=== PATIENT | male | born 1950 | race Caucasian/White ===

== ENCOUNTER 2018-06-08 11:47 | Inpatient (IN) | payer MEDICARE, OTHER | END 2018-06-09 12:15 | disposition home or self-care (01) | LOC: ER 11:47 → ED HOLD 13:32 → ORTHO 4S 15:36 | DX: I63.9 Cerebral infarction, unspecified (principal); R47.01 Aphasia ==

== ENCOUNTER 2019-12-24 04:16 | Outpatient (CLI) | payer SELFPAY ==
[~2019-12-24 04:16] MED LIST: ASPI-41 PO; ATOR20TA66 PO; METO25TA6 PO
[2019-12-24 08:22] LABS: HEMOGLOBIN A1C 5.6 % (4.5-6.2)
[2019-12-24 08:35] LABS: CHOL/HDL RATIO 4.18 (0.00-4.99)
== END 2019-12-24 23:59 | disposition home or self-care (01) ==
LOC: HW HEART 04:16
DX: Z13.6 Encounter for screening for cardiovascular disorders (principal)
CPT/HCPCS: 36415; G0463

== ENCOUNTER 2020-10-29 16:59 | Emergency (ER) | payer MEDICARE, SELFPAY ==
[~2020-10-29] VITALS: Ht 180.3 cm; Wt 97.2 kg
[~2020-10-29 16:59] MED LIST changes: +DOBUTamine/D5W 500mg/250ml premix IV ONE; +DOPamine/D5W 400mg/250ml bag IV ONE; +LOP25T PO; -METO25TA6 PO; +NORepinephrine 1 mg/ml inj IV ONE; +etomidate 2mg/ml inj. ONE; +heparin, porcine-25,000 units/D5-250ml premix IV ONE; +rocuronium 10mg/ml inj IV ONE; +sod chloride 0.9% 10ml flush syringe IV ONE
[2020-10-29 17:25] LABS: BASOPHILS % (AUTO) 0.6 % (0-1); EOSINOPHILS # (AUTO) 0.2 X10'3 (0-0.9); HEMATOCRIT 43.7 % (42.0-52.0); HEMOGLOBIN 14.9 g/dl (14.0-17.9); LYMPHOCYTES # (AUTO) 2.3 X10'3 (1.1-4.8); LYMPHOCYTES % (AUTO) 30.2 % (21-51); MEAN CORPUSCULAR HEMOGLOBIN 30.8 PG (27.0-31.0); MEAN CORPUSCULAR HGB CONC 34.1 g/dL (33.0-36.5); MEAN CORPUSCULAR VOLUME 90.2 FL (78-98); MEAN PLATELET VOLUME 8.2 FL (7.4-10.4); MONOCYTES # (AUTO) 0.6 X10'3 (0-0.9); MONOCYTES % (AUTO) 8.1 % (2-12); NEUTROPHILS # (AUTO) 4.5 X10'3 (1.8-7.7); NEUTROPHILS % (AUTO) 59.1 % (42-75); PLATELET COUNT 239 X10'3 (140-440); RED BLOOD COUNT 4.85 X10'6 (4.70-6.10); RED CELL DISTRIBUTION WIDTH 13.2 % (11.5-14.5); WHITE BLOOD COUNT 7.6 X10'3 (4.5-11.0)
[2020-10-29 17:41] LABS: ALANINE AMINOTRANSFERASE 21 U/L (12-78); ALBUMIN 3.6 G/DL (3.4-5.0); ALBUMIN/GLOBULIN RATIO 1.1 (1.1-1.5); ALKALINE PHOSPHATASE 73 IU/L (46-116); ANION GAP 10 (8-16); ASPARTATE AMINO TRANSFERASE 36 U/L (10-37); BILIRUBIN,TOTAL 0.4 MG/DL (0.1-1.0); BLOOD UREA NITROGEN 14 MG/DL (7-18); BUN/CREATININE RATIO 12.6 (5.4-32.0); CALCIUM 8.4 MG/DL (8.5-10.1); CHLORIDE 103 MMOL/L (99-107); CREATININE 1.11 MG/DL (0.60-1.10); GLUCOSE 108 MG/DL (70-104); POTASSIUM 3.6 MMOL/L (3.5-5.1); SODIUM 141 MMOL/L (135-145); TOTAL CARBON DIOXIDE 28.2 MMOL/L (24-32); eGFR 66 ML/MIN
[2020-10-29] MEDS ORDERED: aspirin 81mg tab.chew PO ONE (18:05)
[2020-10-29] MEDS ORDERED: heparin, porcine 5000 units/ml vial IV STA (18:05)
[2020-10-29 18:08] VITALS: BP_DIAS 78
[2020-10-29] MEDS ORDERED: heparin 1,000unit/ml 10ml vial 10 ML ONE (18:27)
[2020-10-29] MEDS ORDERED: midazolam 1 mg/ML 2ml injection ONE (18:27)
[2020-10-29] MEDS ORDERED: tirofiban 5mg in NS 100mL 100 ML IV ONE (18:27)
[2020-10-29] MEDS ORDERED: fentaNYL/PF 50MCG/1 ML 2ML syringe ONE (18:27)
[2020-10-29] MEDS ORDERED: LIDOcaine 1% (10mg/ml)w/preservative injection 20ml MDV ONE (18:27)
[2020-10-29] MEDS ORDERED: nitroGLYCERIN-Tridil 50MG/D5W 250 ML IV ONE (18:27)
[2020-10-29] MEDS ORDERED: iohexol 350MG/ML 100ml bottle IV ONE (18:28)
[2020-10-29] MEDS ORDERED: iohexol 350 MG/ML 50ML vial IV ONE ×2 (18:28→19:18)
[2020-10-29] MEDS ORDERED: ondansetron/PF 4mg/2ml inj IV ONE (18:30)
[2020-10-29] MEDS ORDERED: DOBUTamine-DoBUTrex 500mg/D5W 250 ML IV SCH (18:35)
--- NOTE | 2020-10-29 18:37 | NUR ---
1837 order for dobutamine at 5 mcg/ kg compression started 1 amp epinephrin in and flushed 1840 HR 149 89% BVM 15 L RR 22 BP 126/37 Compressions stopped- pulse check 184 Etomidate 20 mg Link 120 mg 1844 intubation w/ MAC; 22 cm at teeth 140 HR 62% O2 27 RR 180/85 BP 1845 Amp of bicarb 90% 02 Norton and NG tube placed Xray to confirm placement.
--- NOTE | 2020-10-29 18:40 | NUR ---
Spoke with pt's Felicitas, updating her on pt's status and recommending she come to hospital. She is on her way. Primary RN Michel updated.
[2020-10-29 18:49] VITALS: BP_SYST 70
--- NOTE | 2020-10-29 18:53 | NUR ---
Compression started epi in and flushed 1854 stopped compression, pulse check 1856 resume compresions 185 epi 1 amp 1900 hold compressions PEA 1901 resume compressions 1902 HOLD COMPRESSION PEA on monitor bicarb in and flushed continue compressions 190 epi in and flushed compression stopped faint femoral pulse with ultrasound heart activity 1905 norepinephrin at 0.5 mcg 122/99 140 97% bagvalve 1909 to orthodontic laboratory technician
[2020-10-29] MEDS ORDERED: NORepinephrine inj. 8 MG in dextrose 5%-water 242 ML IV SCH (18:55)
[2020-10-29] MEDS ORDERED: NORepinephrine 8mg/ 250ml NS 250 ML IV SCH (18:55)
[2020-10-29 19:14] LABS: ABG BASE EXCESS -8.6 mmol/L (-2.0-2.0); ABG PCO2 (T) 59.3 mmHg (35.0-48.0); ABG PO2 (T) 145.5 mmHg (75.0-100.0); ALLEN'S TEST POSITIVE; FCOHb 1.1 % (0.0-3.9); FLOW 15 L/min; FMetHb 0.2 % (0.0-1.5); FO2Hb 96.7 % (94-97); TOTAL HEMOGLOBIN 16.4 G/dl (14.0-18.0)
[2020-10-29] MEDS ORDERED: NO HOME MEDS (19:27)
[2020-10-30] MEDS ORDERED: atropine 0.1mg/ml 10ml syringe ONE (09:34)
== END 2020-10-29 19:51 ==
LOC: ER 17:00
DX: I21.4 Non-ST elevation (NSTEMI) myocardial infarction (principal); R07.9 Chest pain, unspecified; Z20.822 Contact with and (suspected) exposure to COVID-19
CPT/HCPCS: 31500; 36415; 36600; 71045; 80053; 82803; 83880; 84484; 85018; 85025; 87635; 92950; 92953; 93005; 93454; 94002; 94760; 94799; 96365; 99291; C1725; C1751; C1756; C1769; C1874; C9606; C9803; J1250; J1265; J1644; J2001; J2250; J3010; J3246; Q9967; A4620; A6258; J0461; J3490